=== PATIENT | female | born 1975 | race Two or more races ===

== ENCOUNTER → 2020-02-16 | Outpatient (CLI) | payer OTHER | END | disposition home or self-care (01) | LOC: OFIC 805 11:30 | PROVIDERS: ATTEND Otolaryngology | DX: R49.0 Dysphonia (principal); R22.1 Localized swelling, mass and lump, neck; K21.9 Gastro-esophageal reflux disease without esophagitis ==

== ENCOUNTER 2020-02-25 09:38 | Outpatient (CLI) | payer OTHER | END 2020-02-25 09:56 | disposition home or self-care (01) | LOC: SONOGRAMA 09:38 | PROVIDERS: ATTEND Otolaryngology | DX: R22.1 Localized swelling, mass and lump, neck (principal) ==

== ENCOUNTER → 2020-03-08 | Outpatient (CLI) | payer OTHER | END | disposition home or self-care (01) | LOC: OFIC 805 09:45 | PROVIDERS: ATTEND Otolaryngology | DX: K21.9 Gastro-esophageal reflux disease without esophagitis (principal); E04.1 Nontoxic single thyroid nodule ==

== ENCOUNTER 2020-03-16 10:55 | Outpatient (CLI) | payer OTHER | END 2020-03-16 10:59 | disposition home or self-care (01) | LOC: SONOGRAMA 10:55 | PROVIDERS: ATTEND Pathology Anatomic Pathology & Clinical Pathology | DX: D34 Benign neoplasm of thyroid gland (principal); E04.1 Nontoxic single thyroid nodule; E06.3 Autoimmune thyroiditis ==

== ENCOUNTER 2020-04-17 06:30 | Day surgery (SDC) | payer OTHER ==
[~2020-04-17] VITALS: Ht 152.4 cm; Wt 212.0 kg
[~2020-04-17 06:30] MED LIST: ADULT ASPIRIN R81 MG PO; ENALAPRIL MALE2.5 MG PO; FOLIC ACI PO; GABAPE PO; LEVO-T50 MCG PO; LIPITOR40 M1 PO; NEXIUM40 M1 PO; PENTOXIFYLLINE400 MG PO; PEPCID PO; SYNJARDY XR 251 EACH PO; VITAMIN B 12 PO
[2020-04-17] MEDS ORDERED: GABAPENTIN800 M1 (08:05)
[2020-04-17] MEDS ORDERED: FLONASE16 GM (08:05)
[2020-04-17] MEDS ORDERED: HYDROCHLOROTHIA25 MG (08:05)
[2020-04-17] MEDS ORDERED: DICLOFENAC POTA50 MG (08:06)
[2020-04-17] MEDS ORDERED: TRAMADOL HCL50 MG (08:06)
[2020-04-17] MEDS ORDERED: FAMOTIDINE40 MG (08:06)
[2020-04-17] MEDS ORDERED: FOLIC ACID0.8 MG (08:07)
[2020-04-17] MEDS ORDERED: VITAMIN B-121000 MC2 (08:07)
== END 2020-04-18 08:00 | disposition home or self-care (01) ==
LOC: CIR.AMB 06:30 → O/R 06:30 → SURH 06:30 → EDSTATUS 08:00 → O/R 15:24 → SURH 15:24 → CIR.AMB 04-18 08:00 → SURH 04-18 14:38
PROVIDERS: ATTEND Surgery
DX: E04.1 Nontoxic single thyroid nodule (principal); E06.3 Autoimmune thyroiditis